=== PATIENT | female | born 2005 | race Caucasian/White ===

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

== ENCOUNTER 2023-11-05 07:31 | Inpatient (IN) ==
[2023-11-05] MEDS ORDERED: OXYTOCIN 30 UNITS/NSS 30 UNITS/500 ML BAG IV PRN ×2 (07:44→16:35)
[2023-11-05] MEDS ORDERED: LIDOCAINE 1% LOCAL 20 ML VIAL INFIL PRN (07:44)
[2023-11-05 08:15] LABS: Hematocrit (blood only) 33.2 % (37.0-47.0); Hemoglobin 10.7 g/dl (12.0-16.0); Mean Corpuscular Hemoglobin 26.1 pg (25.0-34.0); Mean Corpuscular Hgb Conc 32.2 g/dL (32.0-36.0); Mean Platelet Volume 12.1 fL (9.4-12.4); Platelet Count 193 K/uL (130-400); RDW Coefficient of Variation 13.2 % (11.5-14.5); RDW Standard Deviation 38.5 fL (36.4-46.3); White Blood Count 7.15 K/ul (4.8-10.8)
[2023-11-05] MEDS: OXYTOCIN 30 UNITS/NSS 30 UNITS/500 ML BAG IV PRN (09:24)
[2023-11-05] MEDS: LACTATED RINGER'S 1,000 ML IV PRN (09:25)
--- NOTE | 2023-11-05 11:03 | History & Physical Report ---
Date of Service November 05, 2023 Assessment & Plan (1) Post term over 40 weeks: Plan: Intrauterine at 40-5/7 weeks presents for induction of labor because of postterm . Pitocin induction was begun per labor and delivery protocol Epidural when requested by patient. Anticipate vaginal . Admission and Anticipated Discharge Date Admission Date: November 05, 2023 History of Present Illness Primary Care Provider: Swapinl Shahid MD Patient is a 18-year-old 2 para 1-0-0-1 female EDC of 10/31/2023 who presents for postterm induction. GBS negative. has been complicated by chlamydia infection which was treated successfully. Blood type is O-. Allergies Allergy/AdvReac Type Severity Reaction Status Date / Time lactose Allergy Vomiting Verified 11/05/23 08:06 Home Medications Medication Instructions Recorded Confirmed Type No Known Home Medications 11/05/23 11/05/23 History Patient History Medical History (Updated 11/05/23 @ 11:05 by Emeli Feldman MD, FACOG) (spontaneous vaginal delivery) 08/2022 Normal vaginal delivery Dermoid cyst removed as child Varicella vaccination Surgical History S/P wisdom tooth extraction Family History Grandfather (Paternal) Diabetes Grandmother (Paternal) Diabetes Denies family history of Ovarian cancer Breast cancer Colorectal cancer Social History (Updated 11/05/23 @ 08:06 by Aziza Morales RN) Smoking Status: Never smoker Do You Dip or Chew Tobacco: No; Hx Alcohol Use: No Hx Substance Use: No Preferred Language: [place] Communication Ability: Effective Outbound Sales Agent Required: No Beliefs That Will Affect Care: None marital status: marital status details: nguyễn Bangura (25) [phone] (deployed) Current Living Situation: Spouse Current Living Situation Comment: lives with fodes, child, dog current occupational status: employed current occupation: [employer] Feels Safe at Home: Yes Safety Concerns: Feels Safe At This Time Assistive Devices: None Review of Systems All systems reviewed & are unremarkable except as noted in HPI & below Physical Exam Constitutional: WD/WN, vitals as above Psychiatric: A+Ox3, euthymic affect Genitourinary: OB Exam Abdomen: + vertex, + estimated weight (7-8 pounds) and + irregular contractions Manual OB Exam: + cervical dilation 3 cm, + cervical effacement 70% and + station -1 OB Exam Monitor Tracing: + external FHT monitor used, + external uterine monitor used, + category I and + normal FHT variability Results & Data Vital Signs (Past 12 Hours) Vital Signs Temp Pulse Resp BP 11/05/23 10:57 80 107/58 L 11/05/23 10:26 83 126/84 11/05/23 09:56 77 121/66 11/05/23 09:23 94 H 110/64 11/05/23 08:01 94 H 126/67 11/05/23 08:00 16 11/05/23 08:00 98.8 F 16 Code Status & VTE Plan VTE Prophylaxis Plan VTE Prophylaxis will be ordered: No Coding Level of Care Code None Diagnoses Post term over 40 weeks O48.0
[2023-11-05] MEDS ORDERED: NALOXONE HCL 1 MG in SODIUM CHLORIDE 0.9% 1,000 ML IV PRN (12:06)
[2023-11-05] MEDS ORDERED: NALOXONE HCL 0.4 MG/1 ML VIAL/CARP IV PRN (12:06)
[2023-11-05] MEDS ORDERED: fentaNYL citrate PF 100 MCG/2 ML VIAL EPI PRN (12:06)
[2023-11-05] MEDS ORDERED: NALBUPHINE HCL 5 MG in SYRINGE 0 ML IV PRN (12:06)
[2023-11-05] MEDS ORDERED: fentANYL 2 MCG/ML BUPIVacaine 0.125%-NSS 100ML BAG EPI PRN (12:06)
[2023-11-05] MEDS ORDERED: BUPIVACAINE 0.25% PF 30 ML VIAL EPI PRN (12:06)
[2023-11-05] MEDS ORDERED: ROPIVACAINE 0.5% PF 5 MG/ML 20 ML VIAL EPI PRN (12:06)
[2023-11-05] MEDS ORDERED: diphenhydrAMINE 50 MG/ML VIAL IV PRN (12:06)
[2023-11-05] MEDS ORDERED: ePHEDrine sulfate 50 MG/ML AMP IV PRN (12:06)
[2023-11-05] MEDS ORDERED: SODIUM CHLORIDE 0.9% PF INJ 10 ML VIAL EPI PRN (12:06)
[2023-11-05] MEDS ORDERED: LIDOCAINE 2% MPF LOCAL 5 ML VIAL EPI PRN (12:06)
--- NOTE | 2023-11-05 12:08 | Anesthesiology Consultation ---
Date of Service November 05, 2023 Assessment & Plan (1) Encounter for pre-operative examination: Chart Review Chart Review: Patient NOT seen in Pre Admission Testing and Acceptable Risk for Labor Epidural Consults Requested none History Height/Weight Height: 5 ft 8 in Weight: 93.894 kg Allergies Allergy/AdvReac Type Severity Reaction Status Date / Time lactose Allergy Vomiting Verified 11/05/23 08:06 Medications Home Medications Medication Instructions Recorded Confirmed Last Taken No Known Home Medications 11/05/23 11/05/23 Unknown Active Medications Generic Name Dose Route Start Last Admin Trade Name Freq PRN Reason Stop Dose Admin Oxytocin 30 units in 500 mls @ 4 mls/hr 11/05/23 07:44 11/05/23 10:15 Pitocin 30 Units/Nss IV 11/07/23 07:43 0.24 units/hr .Q24H PRN 4 mls/hr Labor Induction/Augmentation Titration Protocol 0.24 UNITS/HR Lactated Ringer's 1,000 mls @ 125 mls/hr 11/05/23 07:44 11/05/23 09:25 Lr IV 11/07/23 07:43 125 mls/hr .Q8H PRN Administration L&D Protocol Protocol Past Medical History Medical History (Updated 11/05/23 @ 12:08 by Rodolfo Saez MD) Encounter for pre-operative examination (spontaneous vaginal delivery) 08/2022 Normal vaginal delivery Dermoid cyst removed as child Varicella vaccination Exercise / Class Metabolic Activity II 4-5 Yardwork/Stairs/Walk up hill Past Family History Family History Grandfather (Paternal) Diabetes Grandmother (Paternal) Diabetes Denies family history of Ovarian cancer Breast cancer Colorectal cancer Past Surgical History Surgical History S/P wisdom tooth extraction Past Anesthesia History No Hx of Anesthesia Complications Social History Smoking Status: Never smoker Do You Dip or Chew Tobacco: No Hx Alcohol Use: No Hx Substance Use: No substance use type: does not use Physical Exam Vital Signs Last Vital Signs Temp 36.8 C 11/05/23 11:00 Pulse 77 11/05/23 11:57 Resp 16 11/05/23 11:00 BP 116/62 11/05/23 11:57 Testing Laboratory Results 11/05/23 07:50
[2023-11-05] MEDS: fentaNYL citrate PF 100 MCG/2 ML VIAL ONE (12:28)
[2023-11-05] MEDS: BUPIVACAINE 0.25% PF 30 ML VIAL ONE (12:28)
[2023-11-05] MEDS: LIDOCAINE 2%/EPINEPHRINE 1:200,000 20 ML PF ONE (12:28)
[2023-11-05] MEDS: fentANYL 2 MCG/ML BUPIVacaine 0.125%-NSS 100ML BAG ONE (12:29)
[2023-11-05] MEDS: SODIUM CHLORIDE 0.9% PF INJ 10 ML VIAL ONE (12:34)
[2023-11-05] MEDS: BUPIVACAINE 0.25% PF 30 ML VIAL EPI STA (12:41)
[2023-11-05] MEDS: SODIUM CHLORIDE 0.9% PF INJ 10 ML VIAL EPI STA (12:41)
[2023-11-05] MEDS: LIDOCAINE 2%/EPINEPHRINE 1:200,000 20 ML PF EPI STA (12:41)
[2023-11-05] MEDS: fentaNYL citrate PF 100 MCG/2 ML VIAL EPI STA (12:41)
[2023-11-05] MEDS ORDERED: oxyCODONE/ACETAMINOPHEN 5mg/325mg TAB PO PRN (16:35)
[2023-11-05] MEDS ORDERED: HYDROCORTISONE ACETATE 25 MG SUPP PR PRN (16:35)
[2023-11-05] MEDS ORDERED: ACETAMINOPHEN 325 MG TAB PO PRN (16:35)
[2023-11-05] MEDS ORDERED: bisacodyL 10 MG SUPP PR PRN (16:35)
--- NOTE | 2023-11-05 16:39 | Delivery Summary ---
Vaginal Delivery Summary Date of Service November 05, 2023 Vaginal Delivery Summary and 1st Degree LAC (vaginal) Patient is a 18-year-old 2 para 1-0-0-1 female EDC of 10/31/2023 who presented for postterm induction of labor. She received Pitocin by labor and delivery induction protocol and then rupture membranes spontaneously for clear fluid. She received effective epidural analgesia. She progressed to full dilation and pushed effectively over intact perineum for delivery of a viable female infant in the direct OP presentation. A triple nuchal cord was reduced prior to delivering the shoulders. The right arm which was anterior then delivered without maternal effort. A fourth nuchal cord was then reduced. The rest of the delivered easily and was placed on the mother's abdomen for further attention and drying. Despite stimulation and drying she had poor tone and poor respiratory effort. The cord was clamped and cut, and the handed off to the nursery staff was in attendance at the delivery. She was then spontaneously crying and moving all 4 limbs. After cord blood was obtained, placenta was delivered intact with a three-vessel cord. bleeding was controlled with dilute Pitocin and fundal massage. A first-degree vaginal laceration was repaired with 3-0 chromic in usual fashion. QBL was 207 mL. [facility] Vaginal Delivery Charge Delivery Type Details: and 1st Degree LAC (vaginal)
[2023-11-05] MEDS: ePHEDrine sulfate 50 MG/ML AMP ONE (16:59)
[2023-11-05] MEDS: DIPHTHER/TETAN/PERTUS Vaccine (Tdap, Adol/Adult) 0.5mL IM ONE (17:00)
--- NOTE | 2023-11-05 19:34 | Anesthesia Procedure Note ---
Date of Service November 05, 2023 Anesthesia Post Epidural Note Vital Signs Vital Signs: Temp Pulse Resp BP Pulse Ox 36.8 C 92 H 16 124/59 L 98 11/05/23 18:28 11/05/23 18:27 11/05/23 18:28 11/05/23 18:27 11/05/23 16:19 Notes Mental Status: alert / awake / arousable and participated in evaluation Patient Amnestic to Procedure: No Nausea / Vomiting: adequately controlled Pain: adequately controlled Airway Patency, RR, SpO2: stable & adequate BP & HR: stable & adequate Hydration State: stable & adequate Neuraxial Anesthesia: was administered and sensory block resolved Anesthetic Complications: no major complications apparent and Pt Satisfied with anesthetic care Epidural: Removed without complications and With tip intact
[2023-11-05] MEDS: IBUPROFEN 600 MG TAB PO PRN (21:31)
[2023-11-05] MEDS: DOCUSATE SODIUM 100 MG CAP PO SCH (21:31)
[2023-11-05] MEDS: BENZOCAINE 20% SPRY 85 APPLN/85 GM CAN EXT PRN (21:32)
[2023-11-06 06:26] LABS: Hematocrit (blood only) 30.9 % (37.0-47.0); Hemoglobin 9.9 g/dl (12.0-16.0); Mean Corpuscular Hemoglobin 25.8 pg (25.0-34.0); Mean Corpuscular Volume 80.7 fL (80.0-100.0); Mean Platelet Volume 11.9 fL (9.4-12.4); Platelet Count 178 K/uL (130-400); RDW Coefficient of Variation 13.2 % (11.5-14.5); RDW Standard Deviation 38.5 fL (36.4-46.3); Red Blood Count 3.83 M/uL (4.20-5.40); White Blood Count 9.05 K/ul (4.8-10.8)
--- NOTE | 2023-11-06 07:20 | Obstetrical Progress Note ---
Date of Service November 06, 2023 Assessment & Plan (1) Encounter for care and examination after delivery: Satisfactory exam. Continue current care plan. Ready to be discharged when baby is discharged. Subjective Ambulation: ambulating normally Voiding: no voiding problems Passing Gas:: Yes Diet Tolerance:: regular diet Lochia:: Small Feeding Type:: breast feeding Review of Systems All systems reviewed & are unremarkable except as noted in HPI & below Physical Exam Constitutional WD/WN, vitals as above Psychiatric A+Ox3, euthymic affect Genitourinary OB Exam Abdomen: + fundal height Fundus: + firm and + relation to umbilicus (at U) Results & Data Vital Signs (Past 12 Hours) Vital Signs Temp Pulse Resp BP Pulse Ox O2 Del Method 11/06/23 04:15 97.5 F L 86 16 113/72 99 Room Air 11/06/23 00:30 98.1 F 77 18 122/72 96 Room Air 11/05/23 21:30 97.7 F 85 18 111/72 98 Room Air
[2023-11-06] MEDS: PRENATAL VITAMIN 1 TAB PO SCH (08:13)
[2023-11-06] MEDS ORDERED: bisacodyL 5 MG TABEC PO SCH (20:00)
== END 2023-11-06 17:20 | disposition home or self-care (01) | DRG 807 ==
LOC: 4S1 07:31 → 4E2 19:42